=== PATIENT | male | born 1950 | race Caucasian/White ===

== ENCOUNTER 2023-05-11 11:19 | Outpatient (CLI) | payer OTHER ==
--- NOTE | 2023-05-11 13:01 | XRAY Report ---
PROCEDURE: Lumbar Spine 2 View INDICATIONS: LOW BACK PAIN,UNSPECIFIED TECHNIQUE: 3 views of the lumbar spine were acquired. COMPARISON: 08/16/2016 and. FINDINGS: Bones: 5 [id number] vertebrae are present. No significant change. Trace retrolisthesis of L3 o n L4. Lower lumbar facet arthropathy. No vertebral body compression fractures. No suspicious bony le sions. Lower lumbar facet arthropathy and degenerative disc space loss. Soft tissues: Overlying bowel gas pattern is normal. No suspicious soft tissue calcifications. IMPRESSION: No acute bony abnormality. Lower lumbar facet arthropathy. Comment: Lumbar spine MRI may be helpful. Reviewed by: Mayo Gillette MD on 05/11/2023 12:59 PM PDT Approved by: Mayo Gillette MD on 05/11/2023 12:59 PM PDT Station ID: [id number]
== END 2023-05-11 11:20 | disposition home or self-care (01) ==
LOC: DI 11:19
PROVIDERS: ATTEND Internal Medicine
DX: M47.816 Spondylosis without myelopathy or radiculopathy, lumbar region (principal)